=== PATIENT | female | born 1990 | race Caucasian/White ===

== ENCOUNTER 2018-10-22 00:33 | Emergency (ER) | payer OTHER ==
[~2018-10-22] VITALS: Ht 162.6 cm; Wt 81.7 kg
[~2018-10-22 00:33] MED LIST: CLARITIN10 M2; FLEXERIL PO; [UNRECOGNIZED DRUG - OTHER]
[2018-10-22] MEDS ORDERED: IBUPROFEN 400400 M2 PO (00:42)
[2018-10-22] MEDS ORDERED: ANUSOL-HC25 MG RECTAL (02:13)
[2018-10-22] MEDS ORDERED: COLACE100 MG PO (02:13)
[2018-10-22] MEDS ORDERED: NORCO 5-325 TA1 EAC1 PO (02:13)
[2018-10-22] MEDS ORDERED: HYDROCORTISONE30 G9 RECTAL (02:13)
[2018-10-22] MEDS ORDERED: VALIUM5 MG PO (02:13)
[2018-10-22 02:25] VITALS: BP 147/106
== END 2018-10-22 02:25 | disposition home or self-care (01) ==
LOC: M.ERS 00:33
DX: K64.5 Perianal venous thrombosis (principal); Z88.1 Allergy status to other antibiotic agents; Z90.49 Acquired absence of other specified parts of digestive tract; Z98.890 Other specified postprocedural states

== ENCOUNTER 2020-02-04 18:40 | Emergency (ER) | payer OTHER ==
[~2020-02-04] VITALS: Ht 162.6 cm; Wt 81.7 kg
[~2020-02-04 18:40] MED LIST changes: +ANUSOL-HC25 MG RECTAL; +COLACE100 MG PO; +HYDROCORTISONE30 G9 RECTAL; +IBUPROFEN 400400 M2 PO; +NORCO 5-325 TA1 EAC1 PO; +VALIUM5 MG PO
[2020-02-04] MEDS ORDERED: ACETAMINOPHEN-1 EAC2 PO (20:49)
[2020-02-04] MEDS ORDERED: PHENERGAN 25 MG25 M1 PO (20:49)
[2020-02-04 21:12] VITALS: BP 162/110
== END 2020-02-04 21:12 | disposition home or self-care (01) ==
LOC: M.ERS 18:40
DX: J40 Bronchitis, not specified as acute or chronic (principal); Z20.828 Contact with and (suspected) exposure to other viral communicable diseases; Z98.890 Other specified postprocedural states; Z90.49 Acquired absence of other specified parts of digestive tract; Z79.899 Other long term (current) drug therapy; Z88.1 Allergy status to other antibiotic agents

== ENCOUNTER 2020-04-08 23:03 | Emergency (ER) | payer OTHER ==
[~2020-04-08] VITALS: Ht 162.6 cm; Wt 81.7 kg
[~2020-04-08 23:03] MED LIST changes: +ACETAMINOPHEN-1 EAC2 PO; +PHENERGAN 25 MG25 M1 PO
[2020-04-08 23:55] VITALS: BP 134/98
== END 2020-04-08 23:55 | disposition home or self-care (01) ==
LOC: M.ERS 23:03
DX: H18.823 Corneal disorder due to contact lens, bilateral (principal); Z90.49 Acquired absence of other specified parts of digestive tract; Z98.890 Other specified postprocedural states; Z98.51 Tubal ligation status; Z88.1 Allergy status to other antibiotic agents

== ENCOUNTER 2020-11-05 00:37 | Emergency (ER) | payer OTHER ==
[~2020-11-05] VITALS: Ht 162.6 cm; Wt 81.7 kg
[2020-11-05 00:43] VITALS: BP 131/97
[2020-11-05] MEDS ORDERED: PREDNISONE 20 M20 MG PO (02:19)
[2020-11-05] MEDS ORDERED: NEBULIZER MISCELL (02:19)
[2020-11-05] MEDS ORDERED: ALBUTEROL2.5 MG/31 INH (02:19)
== END 2020-11-05 03:03 | disposition home or self-care (01) ==
LOC: M.ERS 00:37
DX: J98.01 Acute bronchospasm (principal); Z20.822 Contact with and (suspected) exposure to COVID-19; J06.9 Acute upper respiratory infection, unspecified; F17.210 Nicotine dependence, cigarettes, uncomplicated; Z90.49 Acquired absence of other specified parts of digestive tract; Z98.51 Tubal ligation status; Z88.1 Allergy status to other antibiotic agents

== ENCOUNTER 2021-02-06 18:08 | Emergency (ER) | payer OTHER ==
[~2021-02-06] VITALS: Ht 162.6 cm; Wt 81.7 kg
[~2021-02-06 18:08] MED LIST changes: +ALBUTEROL2.5 MG/31 INH; +NEBULIZER MISCELL; +PREDNISONE 20 M20 MG PO
[2021-02-06 19:12] VITALS: BP 139/93
== END 2021-02-06 20:41 | disposition home or self-care (01) ==
LOC: M.ERS 18:08
DX: R05.9 Cough, unspecified (principal); Z20.822 Contact with and (suspected) exposure to COVID-19; R09.89 Other specified symptoms and signs involving the circulatory and respiratory systems; F17.210 Nicotine dependence, cigarettes, uncomplicated; Z90.49 Acquired absence of other specified parts of digestive tract; Z98.890 Other specified postprocedural states; Z79.899 Other long term (current) drug therapy; Z88.1 Allergy status to other antibiotic agents